=== PATIENT | male | born 1995 | race Hispanic/Latino ===

== ENCOUNTER 2022-02-08 18:01 | Emergency (ER) | payer SELFPAY ==
[2022-02-08 18:09] VITALS: BP 137/86
[2022-02-08 18:30] VITALS: BP 120/70
[2022-02-08 18:59] LABS: HEMATOCRIT 39.5 % (39.0-50.0); HEMOGLOBIN 13.5 g/dl (14.0-18.0); IMMATURE GRANULOCYTES 0.1 % (0.0-5.0); MEAN CELL VOLUME 88.4 fL CALC (80.0-100.0); MEAN CORPUSCULAR HGB 30.2 pG CALC (26.0-32.0); MEAN CORPUSCULAR HGB CONC 34.2 g/dL CAL (32.0-36.0); NEUT# 11.11 thou/uL (1.82-7.42); RED BLOOD COUNT 4.47 mill/uL (4.70-6.10); RED CELL DISTRI WIDTH 12.3 % (11.5-15.5)
[2022-02-08 19:00] VITALS: BP 132/85
[2022-02-08] MEDS ORDERED: AMOXICILLIN500 MG PO (19:17)
[2022-02-08 19:26] VITALS: BP 132/85
== END 2022-02-08 19:34 | disposition home or self-care (01) | DRG 153 ==
LOC: ED 18:01
PROVIDERS: Family Medicine
DX: J03.90 Acute tonsillitis, unspecified (principal)